=== PATIENT | male | born 1965 | race Caucasian/White ===

== ENCOUNTER 2017-07-26 09:15 | Outpatient (CLI) | payer BC ==
[2017-07-26 11:03] LABS: Hematocrit 44.5 % (42.0-52.0); Mean Platelet Volume 7.6 fL (7.4-10.4); Red Blood Cell (RBC) Count 4.24 mill/uL (4.70-6.10)
[2017-07-26 11:05] LABS: PTT 33.7 SEC (22.9-36.1)
[2017-07-26 11:09] LABS: Prothrombin Time 13.1 SEC (12.0-14.7)
== END 2017-07-26 09:16 | disposition home or self-care (01) ==
LOC: LABBT 09:15
PROVIDERS: ATTEND Neurological Surgery
DX: Z01.812 Encounter for preprocedural laboratory examination (principal); M54.16 Radiculopathy, lumbar region; M71.30 Other bursal cyst, unspecified site
CPT/HCPCS: 85027; 85610; 85730

== ENCOUNTER 2017-07-26 09:30 | Inpatient (IN) | payer BC ==
--- NOTE | 2017-07-20 10:11 | HP ---
HISTORY OF PRESENT ILLNESS: Mr. Lawler is back in neurosurgery clinic after obtaining MRI images un jenifer anesthesia. He is having pain that he is experiencing in the back in the left leg. There is no pain in the right leg. The left leg pain runs down to the side of the back, inside of the calf. T here is occasional numbness on the top of the left foot, but no weakness. There is no incontinence. The pain is near the L5-S1 junction over the SI joints as well. MEDICAL HISTORY: Hypertension, alcohol abuse. PHYSICAL EXAMINATION: HEENT: Normocephalic, atraumatic. Hearing intact. Moist mucous membranes. Trachea midline. Eyes : Pupils are equal and reactive to light. Extraocular muscles are intact. Sclerae is white, nonic teric. PULMONARY: Patient has bilateral symmetric chest rise, appears to be no shortness of breath. CARDIOVASCULAR: The patient has no distal cyanosis or clubbing, regular rate and rhythm. NEUROLOGIC: Gait and station are normal. Motor exam, normal strength in the iliopsoas, quadriceps, hamstrings, anterior tibialis, gastroc and toe flexors. Potentially, some left extensor hallucis l ongus weakness. Sensory exam, mild decreased sensation in the left L5 compared to the right. IMAGES: MRI lateral recess stenosis, mild to moderate L2-L3 and L4-L5, moderate central stenosis at L3-L4, left greater than right, and L5-S1. There was an overgrown left facet and a synovial cyst r esulting in severe foraminal stenosis rather than left L5 nerve root. Flexion, extension x-rays mariana w no instability. These images were obtained, both at [facility]. ASSESSMENT: Spondylosis with radiculopathy, lumbosacral region. PLAN: The patient has tried injections, pain medications and other conservative therapy, but has fa iled to give temporary relief. He is interested in more of a permanent solution. Dr. Conroy off ered a complete facetectomy and wide foraminotomy and TLIF at L5-S1. Informed consent was given. Brad morris discussed the indications, risks, benefits, and expected results from surgery. Risks discussed in cluded, but were not limited to bleeding, infection, CSF leak, nerve damage, weakness, incontinence, cauda equina injury, arachnoiditis, paralysis, ventilator dependence, wheelchair dependence, loss o f vision, hardware misplacement, cardiopulmonary complications of anesthesia or . Long-term co mplications discussed included, but were not limited to degeneration of surrounding disk and future surgery. He understands the risk and is willing to proceed with the surgery.
[2017-07-29] MEDS ORDERED: Bupivacaine HCl 0.5%/Epinephrine 1:200,000/PF 30 ml Vial ONE (06:16)
[2017-07-29] MEDS ORDERED: Sodium Chloride 0.9% 20 ML ONE (06:16)
[2017-07-29] MEDS ORDERED: Thrombin 5000 UNITS/5 ML VIAL ONE (06:16)
[2017-07-29] MEDS ORDERED: Fentanyl 100 MCG/2 ML VIAL ONE (06:45)
[2017-07-29] MEDS ORDERED: Midazolam HCl 2 mg/2 ml Vial ONE (06:45)
[2017-07-29] MEDS ORDERED: PHENYLEPHRINE-NS 100 MCG/ML 10 ML SYRINGE ONE (07:04)
[2017-07-29] MEDS ORDERED: Lidocaine 1% PF 5 ML VIAL ONE (07:04)
[2017-07-29] MEDS ORDERED: Propofol 200 MG/20 ML VIAL ONE (07:04)
[2017-07-29] MEDS ORDERED: ePHEDrine/0.9% NaCl/PF SYRINGE 50 mg/10 ml ONE (07:04)
[2017-07-29] MEDS ORDERED: Dexamethasone 20 MG/5 ML VIAL ONE (07:04)
[2017-07-29] MEDS ORDERED: Ondansetron HCl/PF 4 MG/2 ML Vial ONE (07:04)
[2017-07-29] MEDS ORDERED: Phenylephrine 10 MG/NS 250 ML 250 ML ONE (07:56)
--- NOTE | 2017-07-29 12:34 | OP ---
DATE OF PROCEDURE: 07/29/2017 SURGEON: Dashawn Conroy M.D. IMPREGNATING TANK OPERATOR: Juan Mcfadden PA-C. PREOPERATIVE INDICATION: Treat pain, prevent neurological deterioration. PREOPERATIVE DIAGNOSES: Left L5-S1 synovial cyst with an L5 nerve root foramen, L5 radiculopathy re fractory to nonsurgical treatments. POSTOPERATIVE DIAGNOSES: Left L5-S1 synovial cyst with the L5 nerve root foramen, L5 radiculopathy refractory to nonsurgical treatments. OPERATIVE PROCEDURE: A laminectomy and a complete facetectomy at L5-S1 on the left, removal of syno vial cyst, transforaminal lumbar interbody arthrodesis L5-S1, placement of intervertebral biomechani nelson device L5-S1, pedicle screw and nya instrumentation L5-S1, posterolateral arthrodesis L5 and S1. Local morselized autograft, morselized allograft. PREOPERATIVE MEDICATION: Ancef 2 grams IV. DRAIN NUMBER: One. DRAIN TYPE: 10 [place] L[place]. OPERATIVE DICTATION: The patient was brought to the operating room. General endotracheal anesthesi a was induced. I carefully rolled this patient onto the Franko frame in a prone position with his chest and hips supported by the appropriate attachments for the Franko frame. The patient is quite large. A lateral fluoro radiograph was used to plan our incision. The lumbar skin was sterilely p repped and draped. We opened our incision with a 10 blade knife and controlled bleeding with bipola r and monopolar cautery. We dissected through a substantial amount of subcutaneous fat to the thora codorsal fascia. We incised the fascia in the midline and reflected the paraspinal muscles off the spinous process and lamina from L4 to the sacrum. This was an extremely deep dissection. Our radio graphs were suboptimal due to the patient's girth. We carefully dissected over the facet joints at L4-5 to the L5 transverse processes and in similar fashion over the facet joints at L5-S1 to expose the sacral ala bilaterally. We placed a very long self-retaining retractor. We carefully performed a laminectomy at L5 and performed medial facetectomy at S1 on both sides to ensure both S1 nerve ro ots were decompressed. We identified the L5 nerve roots on both sides and made sure that the openin g to their respective foramina were decompressed. The left foramen at L5-S1 was severely impinged u nery by a large synovial cyst at the ventral aspect of the facet joint. The entire facet joint was r emoved in a piecemeal fashion and with the high speed drill. At completion of our facetectomy this extremely compressed L5 nerve root rebounded to its normal round shape. It was flattened posteriorl y by the synovial cyst before we removed it. When our decompression and neural element had finished , we turned our attention to arthrodesis. We incised the L5-S1 disk space through the foramen at L5-S1 on the left. We removed disk contents using curettes and rongeurs. We measured the height of the interspace to 11 mm with a rectangular s haped bone rasp. We prepared the endplates for grafting with curets. An 11 mm PEEK intravertebral graft was brought into the field. This was loaded with demineralized bone matrix and morselized aut ograft and advanced into the interspaces under radiographic guidance to the appropriate depth. That autograft was prepared on the back table after removing all soft tissue from laminectomy bone and f acetectomy bone and then morcellizing those pieces of bone into demineralized bone matrix as our fus ion substrate. We turned our attention to pedicle screw instrumentation. Here the surgery was arduous. The patient's size made giving the appropriate angle of the pedicle s crews extremely difficult. It may radiography difficult. It made retraction difficult. Using bony anatomic landmarks, palpation of the medial portion of the pedicles, and a lateral fluoro radiograp h as a guide, we chose entry points for L5 and S1 pedicle screws bilaterally. We advanced a bone aw l through the entry point into the vertebral bodies through the pedicles. We probed the trajectorie s and found them completely encased in bone. We tapped them and then placed 6.5 mm diameter screws at L5 and S1 bilaterally. We irrigated copiously with bacitracin irrigation. A 360 degree image se t was generated with the isocentric C-arm, which confirmed adequate positioning. We irrigated once again and then we decorticated the transverse processes of L5 and the sacral ala bilaterally. Over the decorticated bone, we left demineralized bone matrix and morselized autograft. We then brought rods down into the screw heads and tightened caps over the rods. We provided gentle compression ove r the interspace to keep the interbody device in place. Using a [id number] mechanism, we ensured the caps were adequately tightened down onto the rods. We then tunneled a drain inferiorly through a separate stab incision. We treated the wound with vancomycin powder and we closed in lorena tomic layers over a drain. This was a clean case and no contamination.
[2017-07-29] MEDS ORDERED: Ondansetron HCl/PF 4 MG/2 ML Vial IVP PRN ×2 (12:41→12:51)
[2017-07-29] MEDS ORDERED: Morphine Sulfate 2 MG/ML SYRINGE SLOW IVP PRN (12:41)
[2017-07-29] MEDS ORDERED: Acetaminophen/Codeine 30-300mg Tablet PO PRN ×2 (12:41)
[2017-07-29] MEDS ORDERED: Promethazine HCl 25 MG/ML VIAL SLOW IVP PRN (12:51)
[2017-07-29] MEDS ORDERED: HYDROmorphone 2 MG/ML VIAL SLOW IVP PRN (12:51)
[2017-07-29] MEDS ORDERED: Promethazine HCl 25 MG/ML VIAL IM PRN (12:51)
[2017-07-29 15:44] VITALS: BMI 47.4
[2017-07-29] MEDS: Sodium Chloride 0.9% 1,000 ML IV SCH (16:07)
[2017-07-29] MEDS: Cyclobenzaprine 10 MG TAB PO PRN (16:11)
[2017-07-29] MEDS: HYDROcodone/Acetaminophen 10/325 mg Tablet PO PRN ×2 (16:11→22:22)
[2017-07-30] MEDS: Cyclobenzaprine 10 MG TAB PO PRN ×3 (00:15→21:30)
[2017-07-30] MEDS: Sodium Chloride 0.9% 1,000 ML IV SCH ×2 (03:12→15:48)
[2017-07-30] MEDS: HYDROcodone/Acetaminophen 10/325 mg Tablet PO PRN ×4 (06:07→21:29)
[2017-07-30] MEDS: Bupropion 150 MG XL TAB PO SCH ×2 (07:35→07:37)
[2017-07-30] MEDS: Lisinopril 20 MG TAB PO SCH (07:36)
[2017-07-30] MEDS: Finasteride 5 MG TAB PO SCH (07:37)
--- NOTE | 2017-07-30 10:51 | PRG ---
DATE OF SERVICE: 07/30/2017 Theo Aguilar PA-C dictating for Dr. Jack Mcclelland. SUBJECTIVE: Mr. Lawler is now postoperative day #1, having undergone a posterior lumbar synovial cy stectomy with fusion at L5-S1 with Dr. Conroy. The patient states he is feeling well today. He does have some significant incisional back pain, but otherwise denies leg pain. He has already been up walking the halls. He has full strength in the bilateral lower extremities. We will continue h is CHET drain at this time and appropriate antibiotics. We will see how he is progressing tomorrow wi th the help of a possible discharge tomorrow or Tuesday depending on progress. The patient is overal l pleased with his outcome at this time.
[2017-07-30] MEDS: Zolpidem Tartrate 5 MG TAB PO PRN (21:30)
[2017-07-31] MEDS: HYDROcodone/Acetaminophen 10/325 mg Tablet PO PRN ×4 (03:55→21:15)
[2017-07-31] MEDS: Cyclobenzaprine 10 MG TAB PO PRN ×3 (05:49→21:15)
[2017-07-31] MEDS: Sodium Chloride 0.9% 1,000 ML IV SCH ×2 (08:14→17:28)
[2017-07-31] MEDS: Bupropion 150 MG XL TAB PO SCH (09:04)
[2017-07-31] MEDS: Lisinopril 20 MG TAB PO SCH (09:05)
[2017-07-31] MEDS: Finasteride 5 MG TAB PO SCH (09:05)
--- NOTE | 2017-07-31 11:25 | PRG ---
DATE OF SERVICE: 07/31/2017 SUBJECTIVE: Mr. Lawler is 2 days out from lumbar decompression and fusion. He is mobilizing in the morse with good strength. His drain output over the last 24 hours is 275 mL of serosanguineous outp ut. As such, we will leave this and we will continue to work toward mobilization and as the drain o utput diminishes. There will be plan for removal of the drain and dismissal.
[2017-07-31] MEDS ORDERED: Docusate 100 MG CAP PO PRN (13:10)
[2017-07-31] MEDS: Zolpidem Tartrate 5 MG TAB PO PRN (21:15)
[2017-08-01] MEDS: HYDROcodone/Acetaminophen 10/325 mg Tablet PO PRN ×2 (03:38→08:41)
--- NOTE | 2017-08-01 06:43 | PRG ---
DATE OF SERVICE: 08/01/2017 SUBJECTIVE: Mr. Lawler is 3 days out from decompression and fusion at the lumbosacral segment of th e spine. His L5 radiculopathy is much better. He is very pleased with the results of the operation . His drain is tapering off. Once his drain is below the threshold, we will remove it and discharg e him home. We went over activity restrictions and wound care and followup arrangements.
[2017-08-01] MEDS: Sodium Chloride 0.9% 1,000 ML IV SCH (07:51)
[2017-08-01 08:09] VITALS: BP 129/85; TEMP 98.2
[2017-08-01] MEDS: Bupropion 150 MG XL TAB PO SCH (08:40)
[2017-08-01] MEDS: Lisinopril 20 MG TAB PO SCH (08:41)
[2017-08-01] MEDS: Finasteride 5 MG TAB PO SCH (08:41)
== END 2017-08-01 10:30 | disposition home or self-care (01) | DRG 460 ==
LOC: SURG A 07-29 05:39 → SURG B 07-29 15:13
PROVIDERS: ADMIT Neurological Surgery; ATTEND Neurological Surgery
PROC: 01NB0ZZ Release Lumbar Nerve, Open Approach (ICD-10-PCS; principal; 2017-07-29)
PROC: 0SG30AJ Fusion of Lumbosacral Joint with Interbody Fusion Device, Posterior Approach, Anterior Column, Open Approach (ICD-10-PCS; 2017-07-29)
PROC: 00BY0ZZ Excision of Lumbar Spinal Cord, Open Approach (ICD-10-PCS; 2017-07-29)
DX: M47.27 Other spondylosis with radiculopathy, lumbosacral region (principal); Z68.42 Body mass index [BMI] 45.0-49.9, adult; I10 Essential (primary) hypertension; M71.30 Other bursal cyst, unspecified site; F10.10 Alcohol abuse, uncomplicated; E66.01 Morbid (severe) obesity due to excess calories; K21.9 Gastro-esophageal reflux disease without esophagitis; F32.9 Major depressive disorder, single episode, unspecified; Z90.49 Acquired absence of other specified parts of digestive tract; Z98.84 Bariatric surgery status; Z87.891 Personal history of nicotine dependence
CPT/HCPCS: 76001; 85027; 85610; 85730; A4216; C1713; C1768; G8978-GP-CJ; G8979-GP-CI; J0670; J1100; J1170; J2001; J2250; J2270; J2405; J2704; J3010; J3370; J3490

== ENCOUNTER 2018-05-25 08:58 | Outpatient (CLI) | payer BC ==
[2018-05-25 10:15] LABS: #Basophils 0.1 thou/uL (0.0-0.2); #Eosinphils 0.1 thou/uL (0.0-0.7); #Lymphocytes 1.8 thou/uL (1.20-3.40); #Monocytes 0.6 thou/uL (0.11-0.59); #Neutrophils 5.9 thou/uL (1.40-6.50); %Basophils 0.9 % (0.0-1.0); %Eosinophils 1.7 % (0.0-10.0); %Lymphocytes 20.8 % (21.0-51.0); %Monocytes 7.5 % (0.0-10.0); %Neutrophils 69.2 % (42.0-75.0); Hemoglobin 13.6 g/dL (14.0-18.0); Mean Corpuscular HGB CONC 31.1 g/dL (32.0-36.0); Mean Corpuscular Hemoglobin 30.5 pg (27.0-31.0); Mean Corpuscular Volume 98.1 fL (78.0-98.0); Mean Platelet Volume 7.6 fL (7.4-10.4); Platelet Count 391 thou/uL (130-400); RBC Distribution Width 14.1 % (11.5-14.5); Red Blood Cell (RBC) Count 4.45 mill/uL (4.70-6.10); White Blood Cell (WBC) Count 8.5 thou/uL (4.8-10.8)
[2018-05-25 10:17] LABS: Bilirubin Negative (Negative); Blood, Urine Negative (Negative); Clarity CLEAR (Clear); Glucose, Urine (Dipstick) Negative (Negative); Leukocyte Negative (Negative); Nitrite Negative (Negative); Protein, Urine (Dipstick) Negative (Neg-Trace); Specific Gravity, Urine 1.022 (1.002-1.036)
[2018-05-25 10:20] LABS: Bacteria/HPF None Seen HPF (None Seen); Hyaline Casts/LPF 0-3 HYALINE CAST LPF (0-3 Hyaline); Pathc Cast-AUWi Flag 0.29 (0-2.49); Squamous Epithelial 0-3 HPF (0-3); WBC/HPF 0-3 HPF (0-3)
[2018-05-25 10:21] LABS: Prothrombin Time 13.3 SEC (12.0-14.7)
[2018-05-25 10:30] LABS: Anion Gap 11 mmol/L (10-20); BUN (Urea Nitrogen) 11 mg/dL (8.4-25.7); Calc. Creatinine Clearance 0 mL/min (70-130); Calcium 8.5 mg/dL (7.8-10.44); Carbon Dioxide 25 mmol/L (22-29); Chloride 107 mmol/L (98-107); Estimated GFR-MDRD Greater than 90; Glucose 88 mg/dL (70-105); Potassium 3.5 mmol/L (3.5-5.1); Sodium 139 mmol/L (136-145)
[2018-05-25 10:50] LABS: Crystals/HPF 2+ CA OXALATE HPF (Negative)
--- NOTE | 2018-05-25 13:07 | RAD ---
CHEST PA AND LATERAL: HISTORY: A 53-year-old male with a history of preoperative evaluation. COMPARISON: 01/27/17. FINDINGS: Heart size is normal. The lungs are clear of acute process. No confluent pneumonia, overt edema, or pleural effusion. IMPRESSION: No acute intrathoracic disease. Mild atherosclerotic changes of the aorta. POS: SILKEH
== END 2018-05-25 08:59 | disposition home or self-care (01) ==
LOC: LABBT 08:58
PROVIDERS: ATTEND Orthopaedic Surgery
DX: Z01.818 Encounter for other preprocedural examination (principal); M17.12 Unilateral primary osteoarthritis, left knee
CPT/HCPCS: 71046; 80048; 81001; 85025; 85610; 86850; 86900; 86901; 87081; 93005; 93010

== ENCOUNTER 2018-05-25 13:00 | Inpatient (IN) | payer BC ==
[2018-05-25 09:22] VITALS: BMI 47.0
[2018-05-30] MEDS ORDERED: Acetaminophen 325 MG TAB PO PRN (07:03)
[2018-05-30] MEDS ORDERED: Ondansetron HCl/PF 4 MG/2 ML Vial IVP PRN ×4 (07:03→12:46)
[2018-05-30] MEDS ORDERED: Zolpidem Tartrate 5 MG TAB PO PRN ×3 (07:03→12:46)
[2018-05-30] MEDS ORDERED: Promethazine HCl 25 MG/ML VIAL IM PRN ×4 (07:03→12:46)
[2018-05-30] MEDS ORDERED: diphenhydrAMINE 25 MG CAP PO PRN ×2 (07:03→12:46)
[2018-05-30] MEDS ORDERED: Fentanyl 100 MCG/2 ML VIAL SLOW IVP PRN ×2 (07:03)
[2018-05-30] MEDS ORDERED: HYDROcodone/Acetaminophen 10/325 mg Tablet PO PRN ×4 (07:03→09:58)
[2018-05-30] MEDS ORDERED: traMADol HCl 50 MG TAB PO PRN ×3 (07:03→09:58)
[2018-05-30] MEDS ORDERED: CEFAZOLIN/Water 2 GM/20 ML SYRINGE ONE (09:00)
[2018-05-30] MEDS ORDERED: Sodium Chloride 0.9% 100 ML ONE (09:00)
[2018-05-30] MEDS ORDERED: Vancomycin HCl 1.5 GM in Sodium Chloride 0.9% 250 ML 300 ML IVPB SCH (09:15)
[2018-05-30] MEDS ORDERED: Midazolam HCl 2 mg/2 ml Vial ONE (09:27)
[2018-05-30] MEDS ORDERED: Fentanyl 100 MCG/2 ML VIAL ONE ×3 (09:27→11:59)
[2018-05-30] MEDS ORDERED: Ropivacaine HCl/PF 250 ML in Premix Bag 1 BAG NERVE BLCK SCH (09:58)
[2018-05-30] MEDS ORDERED: Fentanyl 100 MCG/2 ML VIAL IV PRN (09:58)
[2018-05-30] MEDS ORDERED: Ketorolac Tromethamine 30 MG/ML VIAL IVP PRN (09:58)
[2018-05-30] MEDS ORDERED: Vancomycin HCl 500 MG in Sodium Chloride 0.9% 100 ML IVPB SCH (10:00)
[2018-05-30] MEDS ORDERED: Promethazine HCl 25 MG/ML VIAL SLOW IVP PRN (10:31)
--- NOTE | 2018-05-30 12:01 | OP ---
DATE OF PROCEDURE: 05/30/2018 PREOPERATIVE DIAGNOSIS: Degenerative joint disease, left knee. POSTOPERATIVE DIAGNOSIS: Degenerative joint disease, left knee. SURGEON: Flash Layne M.D. SENIOR CONTROLS TECHNICIAN: Willi Ozuna PA-C. BLOOD LOSS: Minimal. SPECIMEN: None. DRAINS: None. COMPLICATIONS: None. TOURNIQUET TIME: 54 minutes. TITLE OF PROCEDURE: Left total knee arthroplasty using [place] Triathlon 5 femur, 5 tibia, 9 mm CSX3 polyethylene and an A32 patella. PROCEDURE IN DETAIL: After informed consent was obtained in the preoperative holding area. The benjamin ent was taken to the operative suite where general anesthesia was induced. Once adequate level of ge neral anesthesia was obtained, the patient was positioned and a well-padded tourniquet was placed nate und the left proximal thigh. The left lower extremity was then prepped and draped in the usual steri le fashion. Prior to exsanguination, a time out was called and all members of the surgical team agre ed upon site, surgeon, and patient. The extremity was then exsanguinated and the tourniquet was rais ed. A midline longitudinal incision was then made directly over the patella extending two fingerbrea dths above the superior pole of the patella and two fingerbreadths inferior to the inferior patellar pole of the patella. Deeper subcutaneous layers were dissected sharply and local bleeding was contro lled with Bovie electrocautery. A quad tendon longitudinal split was then made sharply and a median parapatellar arthrotomy was carried out both sharp and with Bovie electrocautery, carried down to one fingerbreadth medial to the tibial tubercle. The knee was then placed into flexion and the patella was everted nicely, and a copious fat pad ectomy was performed allowing for greater exposure of the t ibia. The computer-assisted distal femoral fiducial was then placed and pinned firmly, and the dista l femoral cutting guide was pinned firmly into place. The oscillating saw was then used to remove th e appropriate amount of bone. The 4-in-1 cutting block was then placed on the distal femur and the o scillating saw was used to remove the appropriate amount of bone off of the anterior, posterior, and chamfer cuts. After completion of bone cuts, the anterior cruciate ligament was resected sharply and the posterior cruciate ligament retractor was placed and the tibia was subluxed for better exposure. Partial meniscectomies were carried out, and the tibial computer-assisted fiducial was pinned, and the cutting guide was placed. Oscillating saw was then used to remove the bone with Hohmann retracto rs used to take care and protect the collateral ligaments. After the tibial resection was performed, a laminar manager asset management was placed in between the freshened bone cuts. The knee placed at 90 degrees and further bilateral meniscectomies were carried out, and the curved osteotome and curettage was used t o remove any excess bone spurs in the posterior compartment. The trial femoral component, tibial bas eplate were placed with the appropriate polyethylene trial insert with an appropriate polyethylene sp acer and patellar button. The knee was taken through full range of motion with flexion and extension from 0-90 degrees and patellar broach squarely in the trochlea without any squinting or subluxation noted. The knee was also stable to varus and valgus stressing at 0, 15, 45, and 90 degrees of flexio n. The drawer was negative. All trial components were then removed and the keel punch was used to pr ovide the appropriate defect in the tibia with a mallet. The freshened bone cuts were copiously irri gated with pulsatile lavage of about 1-1/2 liters to remove all excess debris. The freshened bone cu ts were then dried and with suction and lap sponge. The knee was placed in flexion and retractors we re placed to provide access to all bone cuts. Tobramycin impregnated methyl methacrylate cement was then placed on the freshened bone cuts and implants which were malleted firmly into place. Curettage and Douglas elevators were used to remove any excess bone cement. The knee was placed into full exten brisa and the patellar button was placed under compression, and the cement was allowed to cure. Once completed, the components were again taken through full range of motion and copious irrigation of the knee was carried out with another liter of normal saline. All components were inspected fully with full range of motion and varus and valgus stressing. There was no laxity noted and full extension was observed clinically. Primary closure was accomplished with #2 interrupted Vicryl stitch of the arth rotomy defect. This was oversewn with a #2 running Quill barbed stitch. The gravitational platelet system was then injected into the arthrotomy prior to closure. The subcutaneous layer was then close d with a running 0 barbed Monocryl stitch and skin closure accomplished with a running subcuticular 3 -0 Monocryl barbed Quill stitch and augmented with cement on the skin. Tourniquet was lowered. Good spontaneous return of distal pulses was noted clinically and a sterile dressing was applied to the i ncision. The procedure was terminated without any complications. The patient was awakened in the op erative suite and the tourniquet was removed, and the patient was taken to the recovery room in stabl e condition.
[2018-05-30] MEDS ORDERED: HYDROmorphone 0.5 MG/0.5 ML SYRINGE ONE ×4 (12:17→13:14)
[2018-05-30] MEDS ORDERED: diphenhydrAMINE 50 MG/ML VIAL IM/IV PRN (12:46)
[2018-05-30] MEDS ORDERED: Naloxone HCl 0.4 mg/ml Vial IV PRN (12:46)
[2018-05-30] MEDS ORDERED: fentaNYL Citrate/PF 2,000 MCG in Sodium Chloride 0.9% 60 ML IV PRN (12:46)
[2018-05-30] MEDS ORDERED: Ondansetron HCl/PF 4 MG/2 ML Vial ONE (13:19)
[2018-05-30] MEDS ORDERED: Glycopyrrolate 0.2 MG/ML 5 ML SYRINGE ONE (13:19)
[2018-05-30] MEDS ORDERED: PROPOFOL 200 MG/20 ML VIAL ONE (13:19)
[2018-05-30] MEDS ORDERED: PHENYLEPHRINE-NS 100 MCG/ML 10 ML SYRINGE ONE (13:19)
[2018-05-30] MEDS ORDERED: Lidocaine 1% PF 5 ML VIAL ONE (13:19)
[2018-05-30] MEDS ORDERED: Ketorolac Tromethamine 30 MG/ML VIAL ONE (13:19)
--- NOTE | 2018-05-30 13:21 | RAD ---
TWO VIEWS LEFT KNEE: Date: 05-30-18 History: Total knee arthroplasty. FINDINGS: There is post-operative gas and fluid within the suprapatellar bursa. There are post-operative change s involving the posterior aspect of the patella. There is a tibial and femoral component present whic h appear well seated with no evidence for acute fracture or dislocation. IMPRESSION: Radiographic evidence of recent total left knee arthroplasty. POS: SILKE
[2018-05-30] MEDS ORDERED: Ketorolac Tromethamine 30 MG/ML VIAL IVP SCH (14:00)
[2018-05-30] MEDS: Amlodipine 5 MG TAB PO SCH (14:25)
[2018-05-30] MEDS: Aspirin 81 mg Enteric Coated Tablet PO SCH ×2 (14:25→21:29)
[2018-05-30] MEDS: Sodium Chloride 0.9% 1,000 ML IV SCH ×2 (14:25→18:07)
[2018-05-30] MEDS: Bupropion 150 MG XL TAB PO SCH (14:25)
[2018-05-30] MEDS: Ferrous Gluconate 324 MG TAB PO SCH ×2 (14:26→21:29)
[2018-05-30] MEDS: Senokot S 8.6-50 MG TAB PO SCH ×2 (14:26→21:29)
[2018-05-30] MEDS: Multivitamin W/ Minerals 1 TAB PO SCH (14:26)
[2018-05-30] MEDS: Lisinopril 20 MG TAB PO SCH (15:05)
[2018-05-30] MEDS: Finasteride 5 MG TAB PO SCH (15:05)
[2018-05-30] MEDS: CEFAZOLIN/Water 2 GM/20 ML SYRINGE SLOW IVP SCH (18:04)
[2018-05-30] MEDS: Acetaminophen 1,000 MG in Premix Bag 1 BAG IVPB SCH ×2 (18:06→23:26)
[2018-05-30] MEDS: Ketorolac Tromethamine 30 MG/ML VIAL IVP SCH ×2 (18:10→23:24)
[2018-05-30] MEDS: Loratadine/Pseudoephedrine 10/240 mg Tablet PO SCH (21:28)
[2018-05-30] MEDS ORDERED: Simethicone Chewable 80 MG TAB PO SCH (23:00)
[2018-05-30] MEDS ORDERED: Sodium Chloride 0.9% 500 ML IVPB SCH (23:00)
[2018-05-31] MEDS: CEFAZOLIN/Water 2 GM/20 ML SYRINGE SLOW IVP SCH (01:11)
[2018-05-31 05:30] LABS: Hemoglobin 11.6 g/dL (14.0-18.0); Mean Corpuscular HGB CONC 33.7 g/dL (32.0-36.0); Mean Corpuscular Hemoglobin 33.1 pg (27.0-31.0); Mean Corpuscular Volume 98.2 fL (78.0-98.0); Mean Platelet Volume 7.6 fL (7.4-10.4); Platelet Count 337 thou/uL (130-400); RBC Distribution Width 13.7 % (11.5-14.5); Red Blood Cell (RBC) Count 3.51 mill/uL (4.70-6.10); White Blood Cell (WBC) Count 10.4 thou/uL (4.8-10.8)
[2018-05-31] MEDS: Sodium Chloride 0.9% 1,000 ML IV SCH ×2 (05:40→14:34)
[2018-05-31] MEDS: Ketorolac Tromethamine 30 MG/ML VIAL IVP SCH ×3 (07:00→18:30)
[2018-05-31] MEDS: Acetaminophen 1,000 MG in Premix Bag 1 BAG IVPB SCH ×3 (07:01→18:31)
[2018-05-31] MEDS: Senokot S 8.6-50 MG TAB PO SCH ×2 (09:24→21:24)
[2018-05-31] MEDS: Bupropion 150 MG XL TAB PO SCH (09:24)
[2018-05-31] MEDS: Lisinopril 20 MG TAB PO SCH (09:24)
[2018-05-31] MEDS: Amlodipine 5 MG TAB PO SCH (09:25)
[2018-05-31] MEDS: Aspirin 81 mg Enteric Coated Tablet PO SCH ×2 (09:25→20:39)
[2018-05-31] MEDS: Finasteride 5 MG TAB PO SCH (09:25)
[2018-05-31] MEDS: Ferrous Gluconate 324 MG TAB PO SCH ×2 (09:25→20:39)
[2018-05-31] MEDS: Multivitamin W/ Minerals 1 TAB PO SCH (09:25)
[2018-05-31] MEDS ORDERED: Acetaminophen 1,000 MG in Premix Bag 1 BAG IVPB PRN (12:49)
--- NOTE | 2018-05-31 18:44 | PDOC.PN ---
- Subjective Encounter Start Date: 05/31/18 Encounter Start Time: 18:41 Pt seen for management of medical comorbidities including hypertension. Denies chest pain, shortness of breath, fevers or chills. Pain 2/10 L knee - Objective MAR Reviewed: Yes Vital Signs & Weight: Vital Signs (12 hours) Temp Pulse Resp BP BP BP Pulse Ox 05/31/18 15:04 98.3 F 85 18 145/84 H 96 05/31/18 11:04 98.3 F 98 20 158/97 H 95 05/31/18 09:25 87 155/92 H 05/31/18 09:24 155/92 H 05/31/18 07:55 98.3 F 85 18 05/31/18 07:40 98.3 F 85 18 155/92 H 94 L Weight Admit Weight 300 lb Weight 300 lb I&O: 05/30/18 05/31/18 06/01/18 06:59 06:59 06:59 Intake Total 1400 1980 Output Total 0 800 Balance 1400 1180 Result Diagrams: 05/31/18 04:29 Additional Labs: Labs reviewed by me Phys Exam - Physical Examination Morbid obesity HEENT: moist MMs Neck: supple Respiratory: clear to auscultation bilateral Cardiovascular: RRR Gastrointestinal: soft s/p L knee surgery Neurological: moves all 4 limbs Psychiatric: normal affect Dx/Plan (1) HTN (hypertension) Code(s): I10 - ESSENTIAL (PRIMARY) HYPERTENSION Status: Chronic Comment: controlled, continue amlodipine and lisinopril. PRN IV hydralazine for BP spikes (2) BPH (benign prostatic hyperplasia) Code(s): N40.0 - BENIGN PROSTATIC HYPERPLASIA WITHOUT LOWER URINRY TRACT SYMP Status: Chronic Comment: stable, continue finasteride (3) GERD (gastroesophageal reflux disease) Code(s): K21.9 - GASTRO-ESOPHAGEAL REFLUX DISEASE WITHOUT ESOPHAGITIS Status: Chronic Comment: stable, continue PPI - Plan * . Review of Systems - Review of Systems Respiratory: negative: Cough, Shortness of Breath, SOB with Excertion, Pleuritic Pain, Wheezing Cardiovascular: negative: chest pain, palpitations, orthopnea, paroxysmal nocturnal dyspnea, edema, light headedness - Medications/Allergies Allergies/Adverse Reactions: Allergies Allergy/AdvReac Type Severity Reaction Status Date / Time No Known Allergies Allergy Verified 05/30/18 14:18 Medications: Current Medications Acetaminophen (Tylenol) 650 mg PO Q4H PRN PRN Reason: CIFUENTES/ T > 101F; Mild Pain (1-3) Amlodipine Besylate (Norvasc) 5 mg PO QAM [facility] Last Admin: 05/31/18 09:25 Dose: 5 mg Aspirin (Ecotrin) 81 mg PO BID [facility] Last Admin: 05/31/18 09:25 Dose: 81 mg Bupropion HCl (Wellbutrin Xl) 300 mg PO DAILY [facility] Last Admin: 05/31/18 09:24 Dose: 300 mg Diphenhydramine HCl (Benadryl) 25 mg IM/IV Q3H PRN PRN Reason: Itching Diphenhydramine HCl (Benadryl) 25 mg PO Q3H PRN PRN Reason: Itching Ferrous Gluconate (Fergon) 324 mg PO BID [facility] Last Admin: 05/31/18 09:25 Dose: 324 mg [facility]aster[facility]) [facility] [place] [facility] Admin: 05/31/18 09:25 Dose: 5 mg Sodium Chloride (Normal Saline 0.9%) 1,000 mls @ 100 mls/hr IV .Q10H [facility] Last Admin: 05/31/18 14:34 Dose: Not Given Ropivacaine 250 ml/ Device 250 mls @ 0 mls/hr NERVE BLCK INF [facility] PRN Reason: As Directed Last Admin: 05/31/18 14:35 Dose: 250 mls Fentanyl Citrate 2,000 mcg/ (Sodium Chloride) 100 mls @ 0 mls/hr IV INF PRN; As Directed PRN Reason: Pain Last Admin: 05/31/18 18:24 Dose: 100 mls Acetaminophen 1,000 mg/ Device 100 mls @ 400 mls/hr IVPB Q4H PRN PRN Reason: Fever/Mild Pain Stop: 06/01/18 23:00 Iron/Minerals/Multivitamins (Theragran M) 1 tab PO DAILY [facility] Last Admin: 05/31/18 09:25 Dose: 1 tab Ketorolac Tromethamine (Toradol) 30 mg IVP Q6HR [facility] Stop: 06/01/18 12:01 Last Admin: 05/31/18 18:30 Dose: 30 mg Lisinopril (Zestril) 20 mg PO QAM [facility] Last Admin: 05/31/18 09:24 Dose: 20 mg Loratadine/Pseudoephedrine Sulfate (Claritin-D 24 Hour) 1 tab PO HS [facility] Last Admin: 05/30/18 21:28 Dose: 1 tab Naloxone HCl (Narcan) 0.2 mg IV Q5MIN PRN PRN Reason: RR <8 or pt obtun/unarousable Ondansetron HCl (Zofran) 4 mg IVP Q6H PRN PRN Reason: Nausea/Vomiting Pantoprazole Sodium (Protonix) 40 mg PO DAILY [facility] Last Admin: 05/31/18 09:25 Dose: 40 mg Promethazine HCl (Phenergan) 12.5 mg IM Q4H PRN PRN Reason: Nausea/Vomiting Senna/Docusate Sodium (Senokot S) 2 tab PO BID [facility] Last Admin: 05/31/18 09:24 Dose: 2 tab Sertraline HCl (Zoloft) 50 mg PO DAILY [facility] Last Admin: 05/31/18 09:25 Dose: 50 mg Sodium Chloride (Flush - Normal Saline) 10 ml IVF PRN PRN PRN Reason: Saline Flush Zolpidem Tartrate (Ambien) 5 mg PO HSPRN PRN PRN Reason: Insomnia
[2018-05-31] MEDS: Loratadine/Pseudoephedrine 10/240 mg Tablet PO SCH (20:38)
[2018-06-01] MEDS: Ketorolac Tromethamine 30 MG/ML VIAL IVP SCH ×3 (00:44→11:15)
[2018-06-01] MEDS: Sodium Chloride 0.9% 1,000 ML IV SCH ×2 (01:57→09:57)
[2018-06-01 06:05] LABS: Hemoglobin 11.6 g/dL (14.0-18.0); Mean Corpuscular Hemoglobin 32.8 pg (27.0-31.0); Mean Corpuscular Volume 99.3 fL (78.0-98.0); Platelet Count 314 thou/uL (130-400); RBC Distribution Width 13.6 % (11.5-14.5); Red Blood Cell (RBC) Count 3.55 mill/uL (4.70-6.10); White Blood Cell (WBC) Count 9.8 thou/uL (4.8-10.8)
[2018-06-01] MEDS: Bupropion 150 MG XL TAB PO SCH (09:55)
[2018-06-01] MEDS: Lisinopril 20 MG TAB PO SCH (09:55)
[2018-06-01] MEDS: Amlodipine 5 MG TAB PO SCH (09:56)
[2018-06-01] MEDS: Finasteride 5 MG TAB PO SCH (09:56)
[2018-06-01] MEDS: Senokot S 8.6-50 MG TAB PO SCH (09:56)
[2018-06-01] MEDS: Multivitamin W/ Minerals 1 TAB PO SCH (09:56)
[2018-06-01] MEDS: Ferrous Gluconate 324 MG TAB PO SCH (09:56)
[2018-06-01] MEDS: Aspirin 81 mg Enteric Coated Tablet PO SCH (09:57)
[2018-06-01] MEDS ORDERED: HYDROcodone/Acetaminophen 10/325 mg Tablet PO PRN ×2 (11:10→11:11)
[2018-06-01 12:06] VITALS: BP 160/83; TEMP 98.1
--- NOTE | 2018-06-01 15:33 | PDOC.PN ---
- Subjective Encounter Start Date: 06/01/18 Encounter Start Time: 09:20 Pt seen for followup re: hypertension. Denies chest pain, shortness of breath, fevers or chills. No nausea or vomiting. - Objective MAR Reviewed: Yes Vital Signs & Weight: Vital Signs (12 hours) Temp Pulse Resp BP BP BP Pulse Ox 06/01/18 12:06 98.1 F 85 18 160/83 H 97 06/01/18 09:56 94 136/81 06/01/18 09:55 136/81 06/01/18 07:13 98.6 F 97 20 136/81 91 L 06/01/18 04:10 97.2 F L 84 20 152/92 H 96 Weight Admit Weight 300 lb Weight 300 lb I&O: 05/31/18 06/01/18 06/02/18 06:59 06:59 06:59 Intake Total 1400 3180 Output Total 0 1675 Balance 1400 1505 Result Diagrams: 06/01/18 05:05 Additional Labs: Labs reviewed by me Phys Exam - Physical Examination Morbid obesity HEENT: moist MMs Neck: supple Respiratory: clear to auscultation bilateral Cardiovascular: RRR Gastrointestinal: soft Neurological: moves all 4 limbs Psychiatric: normal affect Dx/Plan (1) HTN (hypertension) Code(s): I10 - ESSENTIAL (PRIMARY) HYPERTENSION Status: Chronic Comment: controlled (2) BPH (benign prostatic hyperplasia) Code(s): N40.0 - BENIGN PROSTATIC HYPERPLASIA WITHOUT LOWER URINRY TRACT SYMP Status: Chronic Comment: stable (3) GERD (gastroesophageal reflux disease) Code(s): K21.9 - GASTRO-ESOPHAGEAL REFLUX DISEASE WITHOUT ESOPHAGITIS Status: Chronic Comment: stable, on PPI - Plan * . Review of Systems - Review of Systems Respiratory: negative: Cough, Shortness of Breath, SOB with Excertion, Pleuritic Pain, Wheezing Cardiovascular: negative: chest pain, palpitations, orthopnea, paroxysmal nocturnal dyspnea, edema, light headedness - Medications/Allergies Allergies/Adverse Reactions: Allergies Allergy/AdvReac Type Severity Reaction Status Date / Time No Known Allergies Allergy Verified 05/30/18 14:18
== END 2018-06-01 13:08 | disposition home or self-care (01) | DRG 470 ==
LOC: SURG A 05-30 07:53 → SURG B 05-30 14:24
PROVIDERS: ADMIT Orthopaedic Surgery; ATTEND Orthopaedic Surgery
PROC: 0SRD0J9 Replacement of Left Knee Joint with Synthetic Substitute, Cemented, Open Approach (ICD-10-PCS; principal; 2018-05-30)
DX: M17.12 Unilateral primary osteoarthritis, left knee (principal); Z68.42 Body mass index [BMI] 45.0-49.9, adult; I10 Essential (primary) hypertension; N40.0 Benign prostatic hyperplasia without lower urinary tract symptoms; K21.9 Gastro-esophageal reflux disease without esophagitis; E66.01 Morbid (severe) obesity due to excess calories; F10.10 Alcohol abuse, uncomplicated; Z98.84 Bariatric surgery status
CPT/HCPCS: 36415; 85027; 96374; C1713; C1776; G8978-GP-CL; G8979-GP-CJ; J0131; J1170; J1885; J2001; J2250; J2405; J2704; J2795; J3010; J3370; J7050

== ENCOUNTER 2018-08-31 08:50 | Outpatient (CLI) | payer BC | END 2018-08-31 08:51 | disposition home or self-care (01) | LOC: LABBT 08:50 | PROVIDERS: ATTEND Orthopaedic Surgery | DX: Z01.812 Encounter for preprocedural laboratory examination (principal); M17.11 Unilateral primary osteoarthritis, right knee | CPT/HCPCS: 87081 ==

== ENCOUNTER 2018-08-31 16:00 | Inpatient (IN) | payer BC ==
[2018-08-31 09:23] VITALS: BMI 47.0
[2018-09-12] MEDS ORDERED: Sodium Chloride 0.9% 100 ML ONE (05:59)
[2018-09-12] MEDS ORDERED: CEFAZOLIN 2 GM/50 ML BAG ONE (05:59)
[2018-09-12] MEDS ORDERED: Fentanyl 100 MCG/2 ML VIAL ONE ×4 (06:16→09:35)
[2018-09-12] MEDS ORDERED: Midazolam HCl 2 mg/2 ml Vial ONE (06:16)
[2018-09-12] MEDS ORDERED: Promethazine HCl 25 MG/ML VIAL IM PRN ×4 (07:28→09:14)
[2018-09-12] MEDS ORDERED: traMADol HCl 50 MG TAB PO PRN ×3 (07:28→08:52)
[2018-09-12] MEDS ORDERED: HYDROcodone/Acetaminophen 10/325 mg Tablet PO PRN ×2 (07:28→08:52)
[2018-09-12] MEDS ORDERED: Ropivacaine HCl/PF 250 ML in Premix Bag 1 BAG NERVE BLCK SCH (07:28)
[2018-09-12] MEDS ORDERED: Ondansetron PF 4 MG/2 ML Vial IVP PRN ×3 (07:28→09:14)
[2018-09-12] MEDS ORDERED: Zolpidem Tartrate 5 MG TAB PO PRN ×3 (07:28→09:14)
[2018-09-12] MEDS ORDERED: Fentanyl 100 MCG/2 ML VIAL IV PRN (07:29)
[2018-09-12] MEDS ORDERED: PACU-Morphine 4MG/ML VIAL SLOW IVP PRN (07:59)
[2018-09-12] MEDS ORDERED: Ondansetron HCl/PF 4 MG/2 ML Vial IVP PRN (07:59)
[2018-09-12] MEDS ORDERED: Promethazine HCl 25 MG/ML VIAL SLOW IVP PRN (07:59)
[2018-09-12] MEDS ORDERED: diphenhydrAMINE 25 MG CAP PO PRN ×2 (08:52→09:14)
[2018-09-12] MEDS ORDERED: Acetaminophen 325 MG TAB PO PRN (08:52)
[2018-09-12] MEDS ORDERED: CEFAZOLIN/Water 2 GM/20 ML SYRINGE SLOW IVP SCH (09:00)
--- NOTE | 2018-09-12 09:00 | OP ---
DATE OF PROCEDURE: 09/12/2018 PREOPERATIVE DIAGNOSIS: Degenerative joint disease, right knee. POSTOPERATIVE DIAGNOSIS: Degenerative joint disease, right knee. PROCEDURE PERFORMED: Right total knee arthroplasty. SURGEON: Flash Layne M.D. R DEVELOPER: Willi Ozuna PA-C. BLOOD LOSS: Minimal. SPECIMEN: None. DRAINS: None. COMPLICATIONS: None. TOURNIQUET TIME: 55 minutes. IMPLANTS USED: [place] [employer] 5 femur, 5 tibia, A32 patella and a 9 mm CSX3 polyethylene. PROCEDURE IN DETAIL: After informed consent was obtained in the preoperative holding area. The benjamin ent was taken to the operative suite where general anesthesia was induced. Once adequate level of ge neral anesthesia was obtained, the patient was positioned and a well-padded tourniquet was placed nate und the right proximal thigh. The right lower extremity was then prepped and draped in the usual cate rile fashion. Prior to exsanguination, a time out was called and all members of the surgical team ag katie upon site, surgeon, and patient. The extremity was then exsanguinated and the tourniquet was ra ised. A midline longitudinal incision was then made directly over the patella extending two fingerbr eadths above the superior pole of the patella and two fingerbreadths inferior to the inferior patella r pole of the patella. Deeper subcutaneous layers were dissected sharply and local bleeding was cont rolled with Bovie electrocautery. A quad tendon longitudinal split was then made sharply and a media n parapatellar arthrotomy was carried out both sharp and with Bovie electrocautery, carried down to o ne fingerbreadth medial to the tibial tubercle. The knee was then placed into flexion and the patell a was everted nicely, and a copious fat pad ectomy was performed allowing for greater exposure of the tibia. The computer-assisted distal femoral fiducial was then placed and pinned firmly, and the dis andrea femoral cutting guide was pinned firmly into place. The oscillating saw was then used to remove the appropriate amount of bone. The 4-in-1 cutting block was then placed on the distal femur and the oscillating saw was used to remove the appropriate amount of bone off of the anterior, posterior, an d chamfer cuts. After completion of bone cuts, the anterior cruciate ligament was resected sharply a nd the posterior cruciate ligament retractor was placed and the tibia was subluxed for better exposur e. Partial meniscectomies were carried out, and the tibial computer-assisted fiducial was pinned, an d the cutting guide was placed. Oscillating saw was then used to remove the bone with Hohmann retrac tors used to take care and protect the collateral ligaments. After the tibial resection was performe d, a laminar nutrition representative was placed in between the freshened bone cuts. The knee placed at 90 degrees a nd further bilateral meniscectomies were carried out, and the curved osteotome and curettage was used to remove any excess bone spurs in the posterior compartment. The trial femoral component, tibial b aseplate were placed with the appropriate polyethylene trial insert with an appropriate polyethylene spacer and patellar button. The knee was taken through full range of motion with flexion and extensi on from 0-90 degrees and patellar broach squarely in the trochlea without any squinting or subluxatio n noted. The knee was also stable to varus and valgus stressing at 0, 15, 45, and 90 degrees of flex ion. The drawer was negative. All trial components were then removed and the keel punch was used to provide the appropriate defect in the tibia with a mallet. The freshened bone cuts were copiously ir rigated with pulsatile lavage of about 1-1/2 liters to remove all excess debris. The freshened bone cuts were then dried and with suction and lap sponge. The knee was placed in flexion and retractors were placed to provide access to all bone cuts. Tobramycin impregnated methyl methacrylate cement wa s then placed on the freshened bone cuts and implants which were malleted firmly into place. Curetta ge and [place] elevators were used to remove any excess bone cement. The knee was placed into full ext ension and the patellar button was placed under compression, and the cement was allowed to cure. Onc e completed, the components were again taken through full range of motion and copious irrigation of t he knee was carried out with another liter of normal saline. All components were inspected fully wit h full range of motion and varus and valgus stressing. There was no laxity noted and full extension w as observed clinically. Primary closure was accomplished with #2 interrupted Vicryl stitch of the ar throtomy defect. This was oversewn with a #2 running Quill barbed stitch. The gravitational platele t system was then injected into the arthrotomy prior to closure. The subcutaneous layer was then leland sed with a running 0 barbed Monocryl stitch and skin closure accomplished with a running subcuticular 3-0 Monocryl barbed Quill stitch and augmented with cement on the skin. Tourniquet was lowered. Go od spontaneous return of distal pulses was noted clinically and a sterile dressing was applied to the incision. The procedure was terminated without any complications. The patient was awakened in the operative suite and the tourniquet was removed, and the patient was taken to the recovery room in sta ble condition.
[2018-09-12] MEDS ORDERED: fentaNYL Citrate/PF 2,000 MCG in Sodium Chloride 0.9% 60 ML IV PRN (09:14)
[2018-09-12] MEDS ORDERED: diphenhydrAMINE 50 MG/ML VIAL IM/IV PRN (09:14)
--- NOTE | 2018-09-12 09:18 | RAD ---
RIGHT KNEE TWO VIEWS: History: Total knee arthroplasty, post op. FINDINGS/IMPRESSION: Recent post op changes of total knee arthroplasty are in good position and alignment. Soft tissue air is noted. POS: SILKEH
[2018-09-12] MEDS ORDERED: Naloxone HCl 0.4 mg/ml Vial IV PRN (09:22)
[2018-09-12] MEDS ORDERED: Acetaminophen 1,000 MG in Premix Bag 1 BAG IVPB SCH (09:30)
[2018-09-12] MEDS ORDERED: Morphine 4 MG/ML VIAL ONE (09:43)
[2018-09-12] MEDS ORDERED: Morphine 10 MG/ML VIAL ONE (11:06)
[2018-09-12] MEDS: Amlodipine 5 MG TAB PO SCH (13:09)
[2018-09-12] MEDS: Dextrose 5 %-0.45 % NaCl 1,000 ML IV SCH ×2 (13:11→21:34)
[2018-09-12] MEDS: Aspirin 81 mg Enteric Coated Tablet PO SCH ×2 (13:11→20:51)
[2018-09-12] MEDS: Lisinopril 20 MG TAB PO SCH (13:12)
[2018-09-12] MEDS: Finasteride 5 MG TAB PO SCH (13:26)
[2018-09-12] MEDS: Ketorolac Tromethamine 30 MG/ML VIAL IVP SCH ×3 (13:27→23:08)
[2018-09-12] MEDS ORDERED: Ropivacaine 0.5% HCl/PF (150 MG/30 ML VIAL) ONE (15:28)
[2018-09-12] MEDS ORDERED: Bupivacaine 0.25% HCL 30 ML VIAL ONE (15:28)
[2018-09-12] MEDS ORDERED: PHENYLEPHRINE-NS 100 MCG/ML 10 ML SYRINGE ONE (15:49)
[2018-09-12] MEDS ORDERED: Ondansetron PF 4 MG/2 ML Vial ONE (15:49)
[2018-09-12] MEDS ORDERED: PROPOFOL 200 MG/20 ML VIAL ONE (15:49)
[2018-09-12] MEDS ORDERED: Ketorolac Tromethamine 30 MG/ML VIAL ONE (15:49)
[2018-09-12] MEDS ORDERED: Glycopyrrolate 0.2 MG/ML 5 ML SYRINGE ONE (15:49)
[2018-09-12] MEDS: Acetaminophen 500 MG TAB PO SCH ×2 (16:18→21:33)
[2018-09-12] MEDS: CEFAZOLIN 2 GM/50 ML-DEXTROSE 2 GM in Premix Bag 1 BAG IVPB SCH ×2 (16:18→23:08)
--- NOTE | 2018-09-12 17:24 | CON ---
DATE OF CONSULTATION: 09/12/2018 PRIMARY CARE PHYSICIAN: REASON FOR CONSULTATION: Medical management status post right total knee arthroplasty. HISTORY OF PRESENT ILLNESS: Mr. Lawler is a pleasant 53-year-old gentleman with history of obesity, hypertension, sleep apnea, probably, history of gastric bypass with a postoperative infection with MR RAY. He was subsequently being admitted postop day 0 from a right total knee arthroplasty. There were no noted intraoperative complications. He is currently connected to a [employer] pump and his pa in is well controlled. He denies any nausea or vomiting. No chest pain or shortness of breath. No fevers or chills. PAST MEDICAL HISTORY: 1. Hypertension. 2. Sleep apnea. 3. Gastric bypass in 2007 in [place] with multiple abdominal surgeries afterwards after a MRSA infect ion. 4. Seasonal allergies. 5. Osteoarthritis. 6. Lumbar stenosis, status post fusion. 7. GERD. 8. Depression. PAST SURGICAL HISTORY: Include, 1. Facetectomy on 07/2017 with fusion. 2. Gastric bypass in 2007. 3. Multiple abdominal washouts in 2007 for MRSA infection. 4. Left TKA, 04/2018, uncomplicated. 5. Nasal septum repair. 6. Right knee arthroscopy. 7. Right rotator cuff repair several years ago. HOME MEDICATIONS: 1. Amlodipine 5 mg p.o. q.a.m. 2. Bupropion XL 300 mg p.o. q.a.m. 3. Proscar 5 mg p.o. q.a.m. 4. Lisinopril 20 mg p.o. q.a.m. 5. Omeprazole 20 mg p.o. q.a.m. 6. Sertraline 50 mg p.o. q.a.m. ALLERGIES: NKDA. FAMILY HISTORY: Significant for hypertension, COPD, dad had ruptured brain aneurysm with hemorrhagic stroke and some cancers. SOCIAL HISTORY: Significant for tobacco, quit in 2014 after an approximately [id number]-[id number] history. He uses occasional alcohol, no IV drugs. He is . His accompanies him. REVIEW OF SYSTEMS: All systems reviewed and negative except as stated as per HPI. PHYSICAL EXAMINATION: VITAL SIGNS: Temperature 97.6, pulse 85, blood pressure 117/73, respiratory rate 20, satting 99% on room air. GENERAL: He is awake. He is alert. He is oriented x3, well-developed, well-nourished, obese white male who appears to be in no distress. HEENT: Normocephalic, atraumatic. Pupils equal, round, reactive to light bilaterally. Mucous membr anes are moist. No visible lesions. No thrush. NECK: Supple. There is no development of JVD or thyromegaly. No carotid upstroke. No bruit. LUNGS: Clear. No wheezing, rales, or rhonchi with good air movement. Symmetrical chest excursion. CARDIOVASCULAR: Normal S1 and S2. No S3 or S4. No murmurs. ABDOMEN: Obese, it is nontender. He has got good bowel sounds in all four quadrants. There is no r ebound, rigidity, or guarding. EXTREMITIES: No cyanosis or clubbing. He has got trace pedal edema bilaterally. The right knee is in a postop dressing, it was not removed. Left knee is well healed. SKIN: Warm, moist, and well perfused. There are no rashes or lesions. IV sites are clean, dry and intact to the left arm. MUSCULOSKELETAL: Otherwise, normal to inspection. All joints otherwise appear normal. There is no evidence of inflammation or palpable effusion. NEUROLOGIC: Cranial nerves II-XII are grossly intact as well. No focal neurologic deficits, 5/5 str ength in all 4 extremities. Normal speech pattern. LABORATORY DATA: Preoperatively on 09/07/2018, sodium 136, potassium 4.1, chloride 103, bicarb 25, B UN 12, creatinine 0.98, glucose 104, calcium 8.9. CBC showed white count of 8.5, hemoglobin 13.8, he matocrit 43.7, platelet count was 499,000. ASSESSMENT AND PLAN: 1. Hypertension. 2. Severe obesity. 3. Gastroesophageal reflux disease. 4. Depression. 5. Probable obstructive sleep apnea. 6. Seasonal allergies. 7. Osteoarthritis, status post right total knee arthroplasty. Continue home medications. We will follow with you medically. Thank you very much for this consult.
[2018-09-12] MEDS ORDERED: Loratadine 10 MG TAB PO PRN (20:19)
[2018-09-13] MEDS: Acetaminophen 500 MG TAB PO SCH ×4 (03:54→16:35)
[2018-09-13 05:19] LABS: Hemoglobin 12.7 g/dL (14.0-18.0); Mean Corpuscular HGB CONC 31.1 g/dL (32.0-36.0); Mean Corpuscular Hemoglobin 30.6 pg (27.0-31.0); Mean Corpuscular Volume 98.4 fL (78.0-98.0); Mean Platelet Volume 7.4 fL (7.4-10.4); Platelet Count 438 thou/uL (130-400); RBC Distribution Width 12.9 % (11.5-14.5); Red Blood Cell (RBC) Count 4.13 mill/uL (4.70-6.10); White Blood Cell (WBC) Count 8.6 thou/uL (4.8-10.8)
[2018-09-13] MEDS: Ketorolac Tromethamine 30 MG/ML VIAL IVP SCH ×2 (05:52→13:30)
[2018-09-13] MEDS: Aspirin 81 mg Enteric Coated Tablet PO SCH (08:57)
[2018-09-13] MEDS: Finasteride 5 MG TAB PO SCH (08:57)
[2018-09-13] MEDS: Lisinopril 20 MG TAB PO SCH (08:57)
[2018-09-13] MEDS: Amlodipine 5 MG TAB PO SCH (08:57)
[2018-09-13] MEDS ORDERED: Senokot S 8.6-50 MG TAB PO SCH (09:00)
[2018-09-13] MEDS ORDERED: Multivitamin W/ Minerals 1 TAB PO SCH (09:00)
[2018-09-13] MEDS ORDERED: Bupropion 150 MG XL TAB PO SCH (09:00)
[2018-09-13] MEDS ORDERED: Ferrous Gluconate 324 MG TAB PO SCH (09:00)
[2018-09-13] MEDS: HYDROcodone/Acetaminophen 10/325 mg Tablet PO PRN ×2 (09:03→13:29)
[2018-09-13] MEDS: Dextrose 5 %-0.45 % NaCl 1,000 ML IV SCH ×2 (09:25→16:35)
--- NOTE | 2018-09-13 12:47 | PDOC.PN ---
- Subjective Encounter Start Date: 09/13/18 Encounter Start Time: 07:50 follow up for consult fo rmedical management of HTN, obesity pt up earlier, doing well, slightly increase d pain. No N/v, no CP or SOB, no D /C, no F/C marcos breakfast well - Objective MAR Reviewed: Yes Vital Signs & Weight: Vital Signs (12 hours) Temp Pulse Resp BP BP Pulse Ox 09/13/18 11:06 98.1 F 84 16 165/104 H 95 09/13/18 08:57 79 132/88 09/13/18 08:00 93 L 09/13/18 07:30 98.1 F 79 16 132/88 93 L 09/13/18 04:15 98.0 F 78 18 155/86 H 95 Weight Weight 300 lb I&O: 09/12/18 09/13/18 09/14/18 06:59 06:59 06:59 Intake Total 1035 Output Total 725 Balance 310 Result Diagrams: 09/13/18 04:55 Phys Exam - Physical Examination Constitutional: NAD HEENT: PERRLA, moist MMs, sclera anicteric, oral pharynx no lesions Neck: no nodes, no JVD, supple, full ROM Respiratory: no wheezing, no rales, no rhonchi, clear to auscultation bilateral Cardiovascular: RRR, no significant murmur, no rub Gastrointestinal: soft, non-tender, no distention, positive bowel sounds Musculoskeletal: no edema Neurological: non-focal, normal sensation, moves all 4 limbs Lymphatic: no nodes Psychiatric: normal affect, A&O x 3 Skin: no rash, normal turgor, cap refill <2 seconds Dx/Plan (1) Degenerative joint disease of left knee Code(s): M17.12 - UNILATERAL PRIMARY OSTEOARTHRITIS, LEFT KNEE Status: Acute Qualifiers: Osteoarthritis type: primary Qualified Code(s): M17.12 - Unilateral primary osteoarthritis, left knee (2) BPH (benign prostatic hyperplasia) Code(s): N40.0 - BENIGN PROSTATIC HYPERPLASIA WITHOUT LOWER URINRY TRACT SYMP Status: Chronic Qualifiers: Lower urinary tract symptom presence: symptoms absent Qualified Code(s): N40.0 - Benign prostatic hyperplasia without lower urinary tract symptoms Comment: stable (3) GERD (gastroesophageal reflux disease) Code(s): K21.9 - GASTRO-ESOPHAGEAL REFLUX DISEASE WITHOUT ESOPHAGITIS Status: Chronic Qualifiers: Esophagitis presence: without esophagitis Qualified Code(s): K21.9 - Gastro -esophageal reflux disease without esophagitis Comment: stable, on PPI (4) HTN (hypertension) Code(s): I10 - ESSENTIAL (PRIMARY) HYPERTENSION Status: Chronic Qualifiers: Hypertension type: essential hypertension Qualified Code(s): I10 - Essential (primary) hypertension Comment: controlled - Plan cont current plan of care, PT/OT, out of bed/ambulate * . anticipate D/c today, will continue to follow while in-house
[2018-09-13] MEDS ORDERED: Simethicone Chewable 80 MG TAB PO PRN (13:40)
[2018-09-13 17:35] VITALS: BP 136/88; TEMP 98.6
--- NOTE | 2018-09-14 14:08 | DIS ---
DATE OF ADMISSION: 09/12/2018 DATE OF DISCHARGE: 09/13/2018 PREOPERATIVE DIAGNOSES: Right hip and knee osteoarthritis/degenerative joint disease. POSTOPERATIVE DIAGNOSES: Right hip and knee osteoarthritis/degenerative joint disease. PROCEDURE: The patient underwent a right total knee replacement. HOSPITAL COURSE: Hospital stay was grossly unremarkable. The patient awoke the next morning, felt g reat and wished to be discontinued. DISCHARGE CONDITION: Good/stable. DISPOSITION: Home with family. FOLLOWUP: Followup would be in 1-3 weeks or sooner if there are problems and/or concerns. DISCHARGE MEDICATIONS: Given with usage instructions. Dr. Willi Ozuna for Dr. Flash Layne.
--- NOTE | 2018-09-14 19:37 | DIS-2 ---
DATE OF ADMISSION: 09/12/2018 DATE OF DISCHARGE: 09/13/2018 ADMISSION DIAGNOSIS: Right knee osteoarthritis/degenerative joint disease. DISCHARGE DIAGNOSIS: Right knee osteoarthritis/degenerative joint disease. PROCEDURE: The patient underwent a right total knee replacement. HOSPITAL COURSE: Hospital stay was grossly unremarkable. Admitted to [address] worked with staff of physical therapy and occupational therapy and progressed quite well. By the next day, the patient was up walking and ready to go home. DISCHARGE CONDITION: Stable. FOLLOWUP: Followup would be in 2-4 weeks, sooner if there are problems and/or concerns. DISCHARGE MEDICATIONS: Given with usage instructions.
== END 2018-09-13 17:50 | disposition home or self-care (01) | DRG 470 ==
LOC: SJJU 09-12 05:29 → SURG B 09-12 10:44
PROVIDERS: ADMIT Orthopaedic Surgery; ATTEND Orthopaedic Surgery
PROC: 0SRC0J9 Replacement of Right Knee Joint with Synthetic Substitute, Cemented, Open Approach (ICD-10-PCS; principal; 2018-09-12)
DX: M17.11 Unilateral primary osteoarthritis, right knee (principal); E66.9 Obesity, unspecified; I10 Essential (primary) hypertension; G47.33 Obstructive sleep apnea (adult) (pediatric); Z98.84 Bariatric surgery status; J30.2 Other seasonal allergic rhinitis; K21.9 Gastro-esophageal reflux disease without esophagitis; F32.9 Major depressive disorder, single episode, unspecified; Z96.652 Presence of left artificial knee joint; Z79.899 Other long term (current) drug therapy; N40.0 Benign prostatic hyperplasia without lower urinary tract symptoms
CPT/HCPCS: 36415; 85027; 96374; C1713; C1776; G8978-GP-CK; G8979-GP-CI; J0131; J1200; J1885; J2250; J2270; J2405; J2704; J2795; J3010; J3370; J7050; S0020

== ENCOUNTER 2018-09-07 10:04 | Outpatient (CLI) | payer BC ==
[2018-09-07 10:50] LABS: #Basophils 0.1 thou/uL (0.0-0.2); #Eosinphils 0.1 thou/uL (0.0-0.7); #Lymphocytes 2.2 thou/uL (1.20-3.40); #Monocytes 0.8 thou/uL (0.11-0.59); #Neutrophils 5.3 thou/uL (1.40-6.50); %Eosinophils 1.5 % (0.0-10.0); %Lymphocytes 25.5 % (21.0-51.0); %Monocytes 9.3 % (0.0-10.0); %Neutrophils 62.7 % (42.0-75.0); Hemoglobin 13.8 g/dL (14.0-18.0); Mean Corpuscular HGB CONC 31.5 g/dL (32.0-36.0); Mean Corpuscular Hemoglobin 30.6 pg (27.0-31.0); Mean Corpuscular Volume 97.1 fL (78.0-98.0); Mean Platelet Volume 7.3 fL (7.4-10.4); Platelet Count 499 thou/uL (130-400); White Blood Cell (WBC) Count 8.5 thou/uL (4.8-10.8)
[2018-09-07 11:11] LABS: Anion Gap 12 mmol/L (10-20); BUN (Urea Nitrogen) 12 mg/dL (8.4-25.7); Calc. Creatinine Clearance 0 mL/min (70-130); Calcium 8.9 mg/dL (7.8-10.44); Carbon Dioxide 25 mmol/L (22-29); Chloride 103 mmol/L (98-107); Estimated GFR-MDRD 80; Glucose 104 mg/dL (70-105); Potassium 4.1 mmol/L (3.5-5.1); Sodium 136 mmol/L (136-145)
== END 2018-09-07 10:05 | disposition home or self-care (01) ==
LOC: LABBT 10:04
PROVIDERS: ATTEND Orthopaedic Surgery
DX: Z01.812 Encounter for preprocedural laboratory examination (principal); M17.11 Unilateral primary osteoarthritis, right knee
CPT/HCPCS: 80048; 85025; 86850; 86900; 86901

== ENCOUNTER 2022-03-03 05:24 | Emergency (ER) | payer BC ==
[2022-03-03] MEDS ORDERED: Ketorolac Tromethamine 30 MG/ML VIAL ONE (05:45)
[2022-03-03] MEDS ORDERED: Cyclobenzaprine 10 MG TAB ONE (05:45)
[2022-03-03] MEDS ORDERED: Dexamethasone 10 MG/ML VIAL ONE (08:37)
[2022-03-03] MEDS ORDERED: HYDROcodone/Acetaminophen 5/325 mg Tablet ONE (08:37)
[2022-03-03] MEDS ORDERED: Dexamethasone 4 MG TAB ONE (08:38)
== END 2022-03-03 08:51 | disposition home or self-care (01) ==
LOC: ERS 05:24
DX: M54.16 Radiculopathy, lumbar region (principal); K21.9 Gastro-esophageal reflux disease without esophagitis; I10 Essential (primary) hypertension; Z79.899 Other long term (current) drug therapy
CPT/HCPCS: 96372; 99283; J1100; J1885; J8540

== ENCOUNTER 2022-03-15 19:34 | Emergency (ER) | payer BC ==
[2022-03-15] MEDS ORDERED: Morphine 4 MG/ML VIAL ONE (20:28)
[2022-03-15] MEDS ORDERED: Ketorolac Tromethamine 30 MG/ML VIAL ONE (20:29)
== END 2022-03-15 21:20 | disposition home or self-care (01) ==
LOC: ERS 19:34
DX: M54.16 Radiculopathy, lumbar region (principal); K21.9 Gastro-esophageal reflux disease without esophagitis; I10 Essential (primary) hypertension; E66.9 Obesity, unspecified; Z79.899 Other long term (current) drug therapy; Z87.891 Personal history of nicotine dependence
CPT/HCPCS: 96374; 96375; J1885; J2270

== ENCOUNTER 2022-04-05 08:31 | Outpatient (CLI) | payer BC | END 2022-04-05 08:32 | disposition home or self-care (01) | LOC: LABBT 08:31 | PROVIDERS: ATTEND Neurological Surgery | DX: Z20.822 Contact with and (suspected) exposure to COVID-19 (principal) | CPT/HCPCS: U0003; U0005 ==

== ENCOUNTER 2022-04-09 11:37 | Day surgery (SDC) | payer BC ==
[2022-04-07 11:59] VITALS: BMI 44.5
[2022-04-09] MEDS ORDERED: fentaNYL Citrate/PF 100 MCG/2 ML SYRINGE ONE (14:28)
[2022-04-09] MEDS ORDERED: PROPOFOL 200 MG/20 ML VIAL ONE (14:30)
[2022-04-09] MEDS ORDERED: Lidocaine 1% PF 5 ML VIAL ONE (14:30)
== END 2022-04-09 16:11 | disposition home or self-care (01) ==
LOC: MRI 11:37
PROVIDERS: ATTEND Neurological Surgery
DX: M47.26 Other spondylosis with radiculopathy, lumbar region (principal); M51.16 Intervertebral disc disorders with radiculopathy, lumbar region; M48.061 Spinal stenosis, lumbar region without neurogenic claudication; M47.815 Spondylosis without myelopathy or radiculopathy, thoracolumbar region; M47.817 Spondylosis without myelopathy or radiculopathy, lumbosacral region; E78.00 Pure hypercholesterolemia, unspecified; I10 Essential (primary) hypertension; Z87.891 Personal history of nicotine dependence; Z79.899 Other long term (current) drug therapy; Z98.1 Arthrodesis status; Z98.84 Bariatric surgery status
CPT/HCPCS: 72148; J2704

== ENCOUNTER 2023-12-18 23:47 | Inpatient (IN) | payer BC ==
[2023-12-19 00:37] LABS: #Basophils 0.1 thou/uL (0.0-0.2); #Eosinphils 0.2 thou/uL (0.0-0.7); #Monocytes 1.1 thou/uL (0.11-0.59); %Eosinophils 1.6 % (0.0-10.0); %Lymphocytes 19.7 % (21.0-51.0); %Monocytes 10.7 % (0.0-10.0); %Neutrophils 66.7 % (42.0-75.0); Hematocrit 36.7 % (42.0-52.0); Hemoglobin 12.6 g/dL (14.0-18.0); Mean Corpuscular HGB CONC 34.3 g/dL (32.0-36.0); Mean Corpuscular Hemoglobin 34.9 pg (27.0-31.0); Mean Corpuscular Volume 101.7 fl (78.0-98.0); Mean Platelet Volume 9.7 fL (7.4-10.4); Platelet Count 445 10x3/uL (130-400); RBC Distribution Width 17.7 % (11.5-14.5); Red Blood Cell (RBC) Count 3.61 mill/uL (4.70-6.10); White Blood Cell (WBC) Count 10.4 10x3/uL (4.8-10.8)
[2023-12-19 00:53] LABS: ALT (SGPT) 10 U/L (8-55); AST (SGOT) 17 U/L (5-34); Albumin 3.4 g/dL (3.5-5.0); Alkaline Phosphatase 100 U/L (40-110); Anion Gap 13 mmol/L (10-20); BUN (Urea Nitrogen) 18 mg/dL (8.4-25.7); Bilirubin, Total 0.2 mg/dL (0.2-1.2); Calc. Creatinine Clearance 0 mL/min (70-130); Calcium 8.6 mg/dL (7.8-10.44); Carbon Dioxide 23 mmol/L (22-29); Chloride 98 mmol/L (98-107); Estimated GFR 61; Globulin 4.1 g/dL (2.4-3.5); Glucose 81 mg/dL (70-105); Lipase 83 U/L (8-78); Protein, Total 7.5 g/dL (6.0-8.3); Sodium 130 mmol/L (136-145)
[2023-12-19 00:55] LABS: Troponin I Less than 0.010 ng/mL (< 0.028)
[2023-12-19] MEDS ORDERED: Nitroglycerin 0.4 MG TAB (25 Tab Bottle) ONE (01:08)
[2023-12-19] MEDS ORDERED: Morphine 4 MG/ML VIAL ONE ×2 (01:58→02:49)
[2023-12-19] MEDS ORDERED: Ondansetron ODT 4 MG TAB PO PRN (02:46)
[2023-12-19] MEDS ORDERED: Acetaminophen 325 MG TAB PO PRN (02:46)
[2023-12-19] MEDS ORDERED: Nitroglycerin 0.4 MG TAB (25 Tab Bottle) SL PRN (02:49)
[2023-12-19 03:48] LABS: #Basophils 0.1 thou/uL (0.0-0.2); #Eosinphils 0.3 thou/uL (0.0-0.7); #Neutrophils 6.1 thou/uL (1.40-6.50); %Basophils 1.4 % (0.0-1.0); %Eosinophils 2.6 % (0.0-10.0); %Lymphocytes 21.5 % (21.0-51.0); %Monocytes 10.6 % (0.0-10.0); %Neutrophils 63.5 % (42.0-75.0); Hematocrit 37.2 % (42.0-52.0); Hemoglobin 12.7 g/dL (14.0-18.0); Mean Corpuscular HGB CONC 34.1 g/dL (32.0-36.0); Mean Corpuscular Hemoglobin 34.6 pg (27.0-31.0); Mean Corpuscular Volume 101.4 fl (78.0-98.0); Mean Platelet Volume 9.8 fL (7.4-10.4); Platelet Count 426 10x3/uL (130-400); RBC Distribution Width 17.7 % (11.5-14.5); Red Blood Cell (RBC) Count 3.67 mill/uL (4.70-6.10); White Blood Cell (WBC) Count 9.6 10x3/uL (4.8-10.8)
[2023-12-19 04:04] LABS: Anion Gap 14 mmol/L (10-20); BUN (Urea Nitrogen) 18 mg/dL (8.4-25.7); Calc. Creatinine Clearance 0 mL/min (70-130); Calcium 8.5 mg/dL (7.8-10.44); Carbon Dioxide 23 mmol/L (22-29); Chloride 99 mmol/L (98-107); Estimated GFR 67; Glucose 78 mg/dL (70-105); Potassium 4.2 mmol/L (3.5-5.1); Sodium 132 mmol/L (136-145)
[2023-12-19 04:30] LABS: Troponin I Less than 0.010 ng/mL (< 0.028)
[2023-12-19 06:42] LABS: Troponin I Less than 0.010 ng/mL (< 0.028)
[2023-12-19 07:15] VITALS: BMI 49.8
[2023-12-19] MEDS ORDERED: Morphine 4 MG/ML VIAL SLOW IVP PRN (08:05)
[2023-12-19] MEDS ORDERED: Morphine 2 MG/ML VIAL ONE ×3 (08:22→21:45)
[2023-12-19] MEDS: Morphine 2 MG/ML VIAL SLOW IVP SCH (08:25)
[2023-12-19] MEDS ORDERED: Lisinopril 5 MG TAB ONE (10:20)
[2023-12-19] MEDS ORDERED: Tamsulosin HCl 0.4 MG CAP ONE (10:20)
[2023-12-19] MEDS ORDERED: Apixaban 5 MG TAB ONE (10:20)
[2023-12-19] MEDS ORDERED: Aspirin Chewable 81 MG TAB ONE (10:20)
[2023-12-19] MEDS ORDERED: Famotidine 20 MG TAB ONE (10:20)
[2023-12-19] MEDS: Aspirin Chewable 81 MG TAB PO SCH (10:45)
[2023-12-19] MEDS: Apixaban 5 MG TAB PO SCH (10:45)
[2023-12-19] MEDS: Lisinopril 5 MG TAB PO SCH (10:45)
[2023-12-19] MEDS: Famotidine 20 MG TAB PO SCH (10:45)
[2023-12-19] MEDS: Flecainide 50 MG TAB PO SCH (10:46)
[2023-12-19] MEDS: Tamsulosin HCl 0.4 MG CAP PO SCH (10:46)
[2023-12-19] MEDS: Morphine 2 MG/ML VIAL SLOW IVP PRN (16:15)
[2023-12-19] MEDS: Melatonin 3 MG TAB PO PRN (23:45)
[2023-12-20 06:52] LABS: Cardiac Risk 1.6 (Less than 4.5)
[2023-12-20] MEDS: Naproxen 500 MG TAB PO SCH ×2 (14:23→20:31)
[2023-12-20] MEDS ORDERED: Communication Order-Pharmacy FS SCH (19:00)
[2023-12-20] MEDS: Zolpidem Tartrate 5 MG TAB PO PRN (20:31)
[2023-12-21] MEDS: Sodium Chloride 0.9% 1,000 ML IV SCH ×2 (05:21→10:50)
[2023-12-21] MEDS ORDERED: Heparin 10,000 UNITS/ 10 ML VIAL ONE (08:31)
[2023-12-21] MEDS ORDERED: Nitroglycerin 50 MG/250 ML BOT 0 ML ONE (08:32)
[2023-12-21] MEDS ORDERED: fentaNYL 50 mcg/mL 1 mL Vial ONE ×2 (09:11→10:05)
[2023-12-21] MEDS ORDERED: Midazolam HCl 2 mg/2 ml Vial ONE (09:12)
[2023-12-21] MEDS ORDERED: Protamine Sulfate 50 MG/5 ML VIAL ONE (09:57)
[2023-12-21] MEDS ORDERED: Nitroglycerin 0.4 MG TAB (25 Tab Bottle) SL PRN (10:07)
[2023-12-21] MEDS ORDERED: Sodium Chloride 0.9% 200 ML IV PRN (10:07)
[2023-12-21] MEDS ORDERED: Acetaminophen/Codeine 30-300mg Tablet PO PRN ×2 (10:07)
[2023-12-21] MEDS: Flecainide 50 MG TAB PO SCH (12:54)
[2023-12-21] MEDS ORDERED: Iopamidol 370 76% 100 ML VIAL ONE (13:21)
[2023-12-21 17:35] VITALS: BP 108/63; TEMP 98.4
[2023-12-23] MEDS ORDERED: FLU VACC QS2023-24(6MOS UP)/PF 60 MCG/0.5 ML SYRINGE IM ONE (09:00)
== END 2023-12-21 17:33 | disposition home or self-care (01) | DRG 287 ==
LOC: ERS 23:47 → ERHOLD 12-19 02:11 → 2SW 12-19 22:52 → OBSVTOIN 12-21 09:17
PROVIDERS: ADMIT Student in an Organized Health Care Education/Training Program; ATTEND Internal Medicine
PROC: 4A023N7 Measurement of Cardiac Sampling and Pressure, Left Heart, Percutaneous Approach (ICD-10-PCS; principal; 2023-12-21)
PROC: B2111ZZ Fluoroscopy of Multiple Coronary Arteries using Low Osmolar Contrast (ICD-10-PCS; 2023-12-21)
PROC: B2151ZZ Fluoroscopy of Left Heart using Low Osmolar Contrast (ICD-10-PCS; 2023-12-21)
DX: R07.9 Chest pain, unspecified (principal); Z68.42 Body mass index [BMI] 45.0-49.9, adult; I50.32 Chronic diastolic (congestive) heart failure; I13.0 Hypertensive heart and chronic kidney disease with heart failure and stage 1 through stage 4 chronic kidney disease, or unspecified chronic kidney disease; K21.9 Gastro-esophageal reflux disease without esophagitis; I48.91 Unspecified atrial fibrillation; E66.01 Morbid (severe) obesity due to excess calories; N40.0 Benign prostatic hyperplasia without lower urinary tract symptoms; G47.33 Obstructive sleep apnea (adult) (pediatric); N18.9 Chronic kidney disease, unspecified; Z98.890 Other specified postprocedural states; Z79.01 Long term (current) use of anticoagulants; Z79.899 Other long term (current) drug therapy
CPT/HCPCS: 36415; 36416; 71045; 80053; 80061; 83690; 83880; 84484; 85025; 85347; 93005; 93458; 94760; 96374; 96376; 99152; 99153; C1769; G0378; J1644; J2250; J2270; J2272; J2720; J3010; J7050; Q9967